=== PATIENT | male | born 1995 | race Caucasian/White ===

== ENCOUNTER 2019-05-28 20:41 | Emergency (ER) | payer BC ==
[~2019-05-28] VITALS: Ht 182.9 cm; Wt 90.9 kg
[~2019-05-28 20:41] MED LIST: NO HOME MEDICATIONS
[2019-05-28 21:08] VITALS: BP 137/65; TEMP 98.2
[2019-05-28 23:10] VITALS: PULSE 86
== END 2019-05-28 23:10 | disposition home or self-care (01) ==
LOC: COL.ER 20:41
DX: S01.111A Laceration without foreign body of right eyelid and periocular area, initial encounter (principal); W22.8XXA Striking against or struck by other objects, initial encounter; Y92.009 Unspecified place in unspecified non-institutional (private) residence as the place of occurrence of the external cause

== ENCOUNTER → 2019-06-03 | Outpatient (CLI) | payer BC ==
[2019-06-03 18:53] VITALS: BP 116/78; PULSE 70; TEMP 98.4
== END ==
LOC: COL.ER 17:57
DX: S01.111D Laceration without foreign body of right eyelid and periocular area, subsequent encounter (principal); X58.XXXD Exposure to other specified factors, subsequent encounter